=== PATIENT | female | born 1965 | race Caucasian/White ===

== ENCOUNTER → 2016-07-21 | Outpatient (CLI) | payer BC ==
[~2016-07-21] VITALS: Ht 171.4 cm; Wt 123.4 kg
[~2016-07-21] MED LIST: ALLEGRA180 MG PO; Ativan PO; CYCLOBENZAPRINE10 MG PO; FIBER TABS625 MG PO; FLEXERIL10 MG PO; Flexeril PO; LORAZEPAM0.5 MG PO; Levothroid,Synthroid PO; NORCO 5/3251 TABLET PO; PERCOCET 5/31 TABLET PO; PROTONIX40 MG PO; PULMICORT FLE180 MCG IH; Percocet 7.5/325,End PO; RELPAX20 MG PO; SYNTHROID150 MCG PO; Toprol XL PO; VALIUM10 MG PO; VENTOLIN HFA18 GM IH
== END | disposition home or self-care (01) ==
LOC: AMB 07-17 07:30 → OPR 07-17 09:30 → AMB 06:40
DX: R19.4 Change in bowel habit (principal); R10.9 Unspecified abdominal pain; R13.10 Dysphagia, unspecified; K64.8 Other hemorrhoids; F41.9 Anxiety disorder, unspecified; E78.5 Hyperlipidemia, unspecified; J45.909 Unspecified asthma, uncomplicated; K21.9 Gastro-esophageal reflux disease without esophagitis; E66.9 Obesity, unspecified; Z68.41 Body mass index [BMI] 40.0-44.9, adult; E55.9 Vitamin D deficiency, unspecified; Z80.0 Family history of malignant neoplasm of digestive organs; Z83.49 Family history of other endocrine, nutritional and metabolic diseases; Z79.899 Other long term (current) drug therapy
CPT/HCPCS: 88305; J2250